=== PATIENT | female | born 1995 | race Caucasian/White ===

== ENCOUNTER 2017-02-24 19:51 | Emergency (ER) | payer SELFPAY ==
[2017-02-24 19:58] VITALS: BP 145/83; BMI 38.7
[2017-02-24 20:38] LABS: BASOPHILS # (AUTO) 0.1 X10^3/uL (0.0-0.1); BASOPHILS % (AUTO) 0.7 % (0.2-1.0); EOSINOPHILS # (AUTO) 0.3 x10^3/uL (0.0-0.2); EOSINOPHILS % (AUTO) 3.9 % (0.9-2.9); HEMATOCRIT 43.2 % (36.0-47.0); HEMOGLOBIN 14.8 g/dL (12.0-16.0); LYMPHOCYTES # (AUTO) 2.4 X10^3/uL (1.3-2.9); LYMPHOCYTES % (AUTO) 32.1 % (21.0-51.0); MEAN CORPUSCULAR HEMOGLOBIN 30.5 pg (27.0-34.0); MEAN CORPUSCULAR HGB CONC 34.2 g/dL (33.0-35.0); MEAN CORPUSCULAR VOLUME 89.4 fL (80.0-100.0); MEAN PLATELET VOLUME 8.4 fL (7.4-11.0); MONOCYTES # (AUTO) 0.6 x10^3/uL (0.3-0.8); MONOCYTES % (AUTO) 8.1 % (0.0-13.0); NEUTROPHILS # (AUTO) 4.2 x10^3/uL (2.2-4.8); NEUTROPHILS % (AUTO) 55.2 % (42.0-75.0); PLATELET COUNT 208 X10^3/uL (150.0-450.0); RED BLOOD COUNT 4.83 X10^6/uL (3.5-5.4); RED CELL DISTRIBUTION WIDTH 12.8 % (11.6-16.5); WHITE BLOOD COUNT 7.6 X10^3/uL (3.6-10.0)
[2017-02-24 20:41] LABS: BILIRUBIN,URINE NEGATIVE (NEGATIVE); BLOOD/HEMOGLOBIN,URINE 1+ (NEGATIVE); GLUCOSE, URINE NEGATIVE (NEGATIVE); KETONES,URINE NEGATIVE (NEGATIVE); LEUKOCYTE ESTERASE ,URINE 2+ (NEGATIVE); NITRITES,URINE NEGATIVE (NEGATIVE); PROTEIN,URINE 1+ (NEGATIVE); UROBILINOGEN,URINE 3+ (NORMAL)
[2017-02-24 20:49] LABS: SERUM PREGNANCY TEST, QUAL NEGATIVE <10 mIU/mL
[2017-02-24 20:51] LABS: BLOOD UREA NITROGEN 14 mg/dL (7-18); CARBON DIOXIDE 28.3 mmol/L (21-32); CHLORIDE 104 mmol/L (98-107); SODIUM 139 mmol/L (136-145)
[2017-02-24 20:52] LABS: ALANINE AMINOTRANSFERASE 46 Units/L (12-78); ALBUMIN 3.5 g/dL (3.4-5.0); ALKALINE PHOSPHATASE 86 Units/L (46-116); ASPARTATE AMINO TRANSFERASE 24 Units/L (15-37); CALCIUM 8.9 mg/dL (8.5-10.1); GLUCOSE 99 mg/dL (65-99); TOTAL PROTEIN 7.4 g/dL (6.4-8.2); eGFR BLACK RACES > 60 (>60); eGFR NON BLACK RACES > 60 (>60)
[2017-02-24 20:55] LABS: APPEARANCE,URINE HAZY (CLEAR); COLOR,URINE YELLOW (YELLOW)
[2017-02-24 20:56] LABS: BACTERIA,URINE 2+ /HPF (NEGATIVE); SQUAMOUS EPITHELIAL CELL,UR NUMEROUS /HPF (NEGATIVE)
--- NOTE | 2017-02-24 20:56 | DR.GENAD ---
HPI - PCP Primary Care Physician: NFD - HPI Comment HPI Comment: STOOL WATERY AND VOMITUS GASTRIC CONTENT. - Complaint/Symptoms Chief Complaint Doctors Comments: FEVER, EARACHE FOLLOWED WITH N/V/D FOR 3 DAYS. NOW HAVING GENERALIZE WEAKNESS. Chief Complaint:: PT STATES" IT ALL STARTED WEDNESDAY I HAD A EAR ACHE AND RUNNY A FEVER, STEPH BEEN NAUSEAED GENERALIZED WEAKNESS DIARRHEA STOMACH PAINS - Nurses notes reviewed Nurses Notes Review: Yes - Source History Provided: Patient - Mode of Arrival Mode of Arrival: Ambulatory - Timing Onset of Chief Complaint: 02/21/17 Came on: Suddenly - Duration Duration: Constant Duration: Days - Severity Severity: Moderate PMH - PMH Past Medical History: No Past Surgical History: No - Family History History of Family Medical Conditions: Yes Family Medical History: Hypertension - Social History Does any household member use tobacco: No Alcohol Use: Occasionally Do you use any recreational Drugs:: No Lives With: Family Lives Where: Home - infectious screening In the last 2 months have you had wt loss of >10#?: NO Have you had fever, night sweats or hemotysis?: No Have you traveled outside the country in the last 6 months?: No Isolation: Standard ROS - Review of Systems Constitutional: Fever, Weakness, Fatigue, Loss of Appetite. negative: Chills Eyes: No Symptoms Reported. negative: Eye Pain, Discharge ENTM: Ear Pain. negative: Nose Discharge, Nose Congestion, Throat Pain Respiratoy: Non-Productive Cough. negative: Productive Cough, Short of Breath, Wheezing, Hemoptysis Cardiovascular: No Symptoms Reported Gastrointestinal/Abdominal: Abdominal Pain, Diarrhea, Nausea, Vomiting Genitourinary: No Symptoms Reported. negative: Dysuria, Frequency, Hematuria Neurological: Headache, Weakness, Dizziness Musculoskeletal: Muscle Pain Integumentary: Change in Color Hematologic/Lymphatic: No Symptoms Reported, Easy Bleeding, Easy Bruising All Other Systems: Reviewed and Negative PE - Vital Signs Vitals: Temperature 99.6 F Pulse Rate 100 Respiratory Rate 18 Blood Pressure 145/83 O2 Sat by Pulse Oximetry 98 - General Limitations: No Limitations General Appearance: Alert - Head Head Exam: Normal Inspection - Eyes Eye exam: Normal Appearance - ENT ENT Exam: Normal External Ear Exam. negative: TM's Normal Bilaterally (RT TM INFLAME) External Ear Exam: Normal External Inspection TM/Canal Exam: Bilateral Normal Nose Exam: Normal Nose Exam Mouth Exam: Normal Inspection Throat Exam: Normal Inspection - Neck Neck Exam: Trachea Midline - Chest Chest Inspection: Symmetric Chest Wall Rise - Respiratory Respiratory Exam: Normal Lung Sounds Bilat Respiratory Exam: Bilateral Clear to Auscultation - Cardiovascular Cardiovascular Exam: Regular Rate, Normal Rhythm, Normal Heart Sounds - Abdominal Exam Abdominal Exam: Normal Bowel Sounds, Soft, Tenderness Abdominal Tenderness: Diffuse, Mild - Extremities Extremities Exam: Normal Inspection - Back Back Exam: Normal Inspection - Neurologic Neurological Exam: Alert, Oriented X3 - Psychiatric Psychiatric Exam: Normal Affect, Normal Mood - Skin Skin Exam: Normal Color MDM - Differential Diagnosis Differential Diagnosis: GASTROENTERITIS, RT OTITIS MEDIA, UTI, BOWEL OBTRUCTION. Course - Treatment Treatment: SEE ORDERS. - Education/Counseling Education/Counseling: Patient, Education Educated On: Diagnosis, Needs for Follow Up ROR - Labs Reviewed Laboratory Results Reviewed?: Yes Result Diagrams: 02/24/17 20:02/24/17 20: Laboratory: WBC 7.6 X10^3/uL (3.6-10.0) 02/24/17 20: RBC 4.83 X10^6/uL (3.5-5.4) 02/24/17 20: Hgb 14.8 g/dL (12.0-16.0) 02/24/17 20: Hct 43.2 % (36.0-47.0) 02/24/17 20: MCV 89.4 fL (80.0-100.0) 02/24/17 20: MCH 30.5 pg (27.0-34.0) 02/24/17 20: MCHC 34.2 g/dL (33.0-35.0) 02/24/17 20: RDW 12.8 % (11.6-16.5) 02/24/17 20: Plt Count 208 X10^3/uL (150.0-450.0) 02/24/17 20: MPV 8.4 fL (7.4-11.0) 02/24/17 20: Neut % 55.2 % (42.0-75.0) 02/24/17 20: Lymph % 32.1 % (21.0-51.0) 02/24/17 20: [place] % 8.1 % (0.0-13.0) 02/24/17 20: Eos % 3.9 % (0.9-2.9) H 02/24/17 20:29 Baso % 0.7 % (0.2-1.0) 02/24/17 20:29 Neut # 4.2 x10^3/uL (2.2-4.8) 02/24/17 20:29 Lymph # 2.4 X10^3/uL (1.3-2.9) 02/24/17 20: [place] # 0.6 x10^3/uL (0.3-0.8) 02/24/17 20:29 Eos # 0.3 x10^3/uL (0.0-0.2) H 02/24/17 20: Baso # 0.1 X10^3/uL (0.0-0.1) 02/24/17 20: Absolute Nucleated RBC 0.0 /100WBC 02/24/17 20:29 Sodium 139 mmol/L (136-145) 02/24/17 20:29 Corrected Sodium TNP 02/24/17 20:29 Potassium 4.3 mmol/L (3.5-5.1) 02/24/17 20:29 Chloride 104 mmol/L (98-107) 02/24/17 20:29 Carbon Dioxide 28.3 mmol/L (21-32) 02/24/17 20:29 BUN 14 mg/dL (7-18) 02/24/17 20:29 Creatinine 1.20 mg/dL (0.55-1.02) H 02/24/17 20:29 Est GFR (MDRD) Af Amer > 60 (>60) 02/24/17 20:29 Est GFR (MDRD) Non-Af > 60 (>60) 02/24/17 20:29 Glucose 99 mg/dL (65-99) 02/24/17 20:29 Calcium 8.9 mg/dL (8.5-10.1) 02/24/17 20:29 Corrected Calcium TNP 02/24/17 20:29 Total Bilirubin 0.40 mg/dL (0.2-1.0) 02/24/17 20:29 AST 24 Units/L (15-37) 02/24/17 20:29 ALT 46 Units/L (12-78) 02/24/17 20:29 Alkaline Phosphatase 86 Units/L (46-116) 02/24/17 20:29 Total Protein 7.4 g/dL (6.4-8.2) 02/24/17 20: Albumin 3.5 g/dL (3.4-5.0) 02/24/17 20: Globulin 3.9 g/dL (2.5-4.5) 02/24/17 20: Albumin/Globulin Ratio 0.9 Ratio (1.1-2.1) L 02/24/17 20: Amylase 34 Units/L (25-115) 02/24/17 20: Lipase 107 Units/L (73-393) 02/24/17 20: HCG, Qual Negative <10 mIU/mL 02/24/17 20:29 Specimen Type Clean catch urine 02/24/17 20:29 Urine Color Yellow (YELLOW) 02/24/17 20: Urine Appearance Hazy (CLEAR) 02/24/17 20: Urine pH 6.0 (5.0 - 8.0) 02/24/17 20:29 Ur Specific [place] 1.020 (1.000-1.030) 02/24/17 20: Urine Protein 1+ (NEGATIVE) 02/24/17 20: Urine Glucose (UA) Negative (NEGATIVE) 02/24/17 20: Urine Ketones Negative (NEGATIVE) 02/24/17 20:29 Urine Occult Blood 1+ (NEGATIVE) 02/24/17 20: Urine Nitrite Negative (NEGATIVE) 02/24/17 20: Urine Bilirubin Negative (NEGATIVE) 02/24/17 20:29 Urine Urobilinogen 3+ (NORMAL) 02/24/17 20:29 Ur Leukocyte Esterase 2+ (NEGATIVE) 02/24/17 20:29 Urine RBC 2-6 /HPF (NEGATIVE) 02/24/17 20:29 Urine WBC 10-15 /HPF (NEGATIVE) 02/24/17 20: Ur Squamous Epith Cells Numerous /HPF (NEGATIVE) 02/24/17 20:29 Urine Bacteria 2+ /HPF (NEGATIVE) 02/24/17 20:29 Ur Culture Indicated? Yes/culture set up 02/24/17 20:29 - Diagnosis Discharge Problem: Gastroenteritis UTI (urinary tract infection) Qualifiers: Urinary tract infection type: site unspecified Hematuria presence: without hematuria Qualified Code(s): N39.0 - Urinary tract infection, site not specified Right otitis media Qualifiers: Otitis media type: suppurative Chronicity: acute Recurrence: not specified as recurrent Spontaneous tympanic membrane rupture: without spontaneous rupture Qualified Code(s): H66.001 - Acute suppurative otitis media without spontaneous rupture of ear drum, right ear - Discharge Plan Disposition: HOME, SELF-CARE Condition: Stable Prescriptions: Diphenoxylate/Atropine [Lomotil] 1 tab PO TID #15 tab Ondansetron HCl [Zofran Tab 4 mg] 4 mg PO Q8H PRN #12 tab PRN Reason: Nausea/Vomiting Sulfamethoxazole-Trimethoprim [BACTRIM DS TAB 800/160 MG *] 1 tab PO BID #20 tab - Follow ups/Referrals Follow ups/Referrals: NFD,None [Primary Care Provider] - 3 days - Instructions Instructions: Viral Gastroenteritis, Adult, [id number], Otitis Media, Adult, [id number], Urinary Tract Infection, Adult, [id number] Additional Instructions: RETURN TO ED IF WORSE.
[2017-02-24 21:08] LABS: AMYLASE 34 Units/L (25-115); LIPASE 107 Units/L (73-393)
[2017-02-24] MEDS ORDERED: BACTRIM DS TAB PO ONE ×2 (21:15→21:16)
== END 2017-02-24 21:22 | disposition home or self-care (01) ==
LOC: ER 20:03
DX: N39.0 Urinary tract infection, site not specified (principal); H66.001 Acute suppurative otitis media without spontaneous rupture of ear drum, right ear; K52.89 Other specified noninfective gastroenteritis and colitis
CPT/HCPCS: 36415; 80053; 81001; 82150; 83690; 84703; 85025; 87086; 99282